=== PATIENT | male | born 2005 | race Two or more races ===

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

== ENCOUNTER 2025-04-16 01:27 | Emergency (ER) | payer OTHER ==
[~2025-04-16] VITALS: Ht 165.1 cm; Wt 81.6 kg
[2025-04-16 02:29] LABS: BASO % 0.4 % (0.1-1.2); EOS # 0.00 (0.04-0.54); EOS % 0.0 % (0.7-7.0); LYMPH # 1.64 (1.18-3.74); LYMPH % 8.7 % (19.3-53.1); MEAN PLATELET VOLUME 8.90 fl (9.4-12.4); MONO # 1.07 (0.24-0.82); MONO % 5.7 % (4.7-12.5); NEUT # 15.82 (1.56-6.13); NEUT % 84.4 % (34.0-71.1); RED CELL DISTRIBUTION WIDTH 11.6 % (11.6-14.4)
[2025-04-16] MEDS ORDERED: 0.9 % SODIUM CHLORIDE 1,000 ML IV ONE (02:30)
[2025-04-16 02:53] LABS: ALT/SGPT 28.0 U/L (12-78); AST/SGOT 21.0 U/L (15-37); BILIRUBIN TOTAL 0.83 mg/dL (0.3-1.2); BUN CREA RATIO 17.0 (7.0-25.0); CREATININE SERUM 1.2 mg/dL (0.70-1.30); GLOBULINA 3.6 G/DL (2.4-3.5); GLUCOSE FASTING 159.0 mg/dL (65-100); OSMOLALITY SERUM 284.0 MOSM/KG (275-295)
[2025-04-16 03:10] LABS: GFR 77.19
[2025-04-16 07:18] LABS: COCAINE NEGATIVE (NEGATIVE); METHADONE NEGATIVE (NEGATIVE); OPIATES NEGATIVE (NEGATIVE); THC ( Cannabinoids) POSITIVE (NEGATIVE)
[2025-04-16 07:21] LABS: URINE APPEARANCE Clear; URINE BILIRRUBIN Negative (NEGATIVE); URINE BLOOD Negative; URINE COLOR Yellow; URINE GLUCOSE Negative (NEGATIVE); URINE KETONE Trace (NEGATIVE); URINE LEUKOCYTE Negative; URINE NITRATE Negative; URINE PROTEIN Negative (NEGATIVE); URINE UROBILINOGEN 0.2 E.U./dl
[2025-04-16 07:25] LABS: URINE BACTERIA 19.1 uL (0.0-1933); URINE CAST 1.75 uL (0.0-1.40); URINE EPITHELIAL CELLS 10.4 uL (0.0-38.8); URINE RBC 2.3 uL (0.0-20.8); URINE WBC 15.6 uL (0.0-23.2)
[2025-04-16 08:24] LABS: TYPE CELLS SQUAMOUS; URINE MUCUS SCANT
[2025-04-16 09:32] LABS: BASO % 0.5 % (0.1-1.2); EOS # 0.04 (0.04-0.54); EOS % 0.3 % (0.7-7.0); LYMPH # 2.25 (1.18-3.74); LYMPH % 15.8 % (19.3-53.1); MEAN PLATELET VOLUME 9.00 fl (9.4-12.4); MONO # 0.97 (0.24-0.82); MONO % 6.8 % (4.7-12.5); NEUT # 10.86 (1.56-6.13); NEUT % 76.2 % (34.0-71.1); RED CELL DISTRIBUTION WIDTH 11.9 % (11.6-14.4)
== END 2025-04-16 11:25 | disposition home or self-care (01) ==
LOC: ER 01:27
PROVIDERS: Preventive Medicine Public Health & General Preventive Medicine; Student in an Organized Health Care Education/Training Program
DX: T50.901A Poisoning by unspecified drugs, medicaments and biological substances, accidental (unintentional), initial encounter (principal); R06.02 Shortness of breath; R00.2 Palpitations; R42 Dizziness and giddiness